=== PATIENT | female | born 1990 | race African-American/Black ===

== ENCOUNTER 2020-05-04 10:24 | Emergency (ER) | payer OTHER, SELFPAY ==
--- OUTSIDE RECORDS SUMMARY | 2020-05-04 10:26 | XMS REPORT | Continuity of Care Document ---
:1990 Author Organization [facility] t Address [address] [place] [address] Care Team Providers Name Role Phone Monica Corona Attending Clinician Problems This patient has no known problems. Allergies, Adverse Reactions, Alerts This patient has no known allergies or adverse reactions. Medications This patient has no known medications. Procedures This patient has no known procedures. Encounters Start End Encounter Admission Attending Care Care Encounter Source Date/Time Date/Time Type Type Clinicians Facility Department ID 2019-08-08 2019-08-08 Office TENNILLE Barbour [id number] 09:50:33 10:20:33 Visit Tosha Anderson [employer] [id number] [facility] [id number] MATERNAL [id number] & CHILD [address] [place] [address] Results This patient has no known results.
--- NOTE | 2020-05-04 11:47 | ER ---
Nurse's Notes [facility] Name: Manuel Holliday Age: 29 yrs Sex: Female : 1990 Arrival Date: 05/04/2020 Time: 10:28 Bed 17 Private MD: Diagnosis: Dizziness and giddiness;Abdominal tenderness;Diarrhea, unspecified Presentation: 05/04 11:00 Chief complaint: Patient states: lower abd pain and diarrhea since Thursday, denies n/v, iw denies urinary s/s, also c/o dizziness X 2 hours. Coronavirus screen: At this time, the client does not indicate any symptoms associated with coronavirus-19. Ebola Screen: Patient negative for fever greater than or equal to 101.5 degrees Fahrenheit, and additional compatible Ebola Virus Disease symptoms Patient denies exposure to infectious person. Patient denies travel to an Ebola-affected area in the 21 days before illness onset. No symptoms or risks identified at this time. Initial Sepsis Screen: Does the patient meet any 2 criteria? No. Patient's initial sepsis screen is negative. Does the patient have a suspected source of infection? No. Patient's initial sepsis screen is negative. Risk Assessment: Do you want to hurt yourself or someone else? Patient reports no desire to harm self or others. Onset of symptoms was April 01, 2020. 11:00 Method Of Arrival: Ambulatory iw 11:00 Acuity: BEN 3 iw Triage Assessment: 11:05 General: Appears in no apparent distress. comfortable, Behavior is cooperative, bp appropriate for age, anxious. Pain: Complains of pain in suprapubic area. EENT: No deficits noted. Neuro: No deficits noted. Cardiovascular: No deficits noted. Respiratory: No deficits noted. GI: Reports nausea, vomiting. : No signs and/or symptoms were reported regarding the genitourinary system. Derm: No deficits noted. Musculoskeletal: No deficits noted. Historical: - Allergies: 11:03 No Known Allergies; iw - Immunization history:: Adult Immunizations up to date. - Family history:: not pertinent. - Social history:: Smoking status: Patient denies any tobacco usage or history of. Screenin:10 Abuse screen: Denies threats or abuse. Denies injuries from another. bp 11:10 Nutritional screening: No deficits noted. Tuberculosis screening: No symptoms or risk bp factors identified. Fall Risk None identified. Assessment: 11:05 General: SEE TRIAGE NOTE. bp 11:56 Reassessment: PT D/C HOME AMBULATORY, DX WITH DIZZINESS AND NONSPECIFIC ABDOMINAL PAIN. bp Vital Signs: 11:00 BP 116 / 89; Pulse 86; Resp 16; Temp 97.9; Pulse Ox 100% on R/A; Weight 90.72 kg; Pain iw 11/08; 11:45 BP 109 / 62; Pulse 87; Resp 16; Temp 97.9; Pulse Ox 100% ; bp ED Course: 10:28 Patient arrived in ED. as 10:42 Maykel Reilly MD is Attending Physician. fazal 10:55 Francisco Wilkinson, RN is Primary Nurse. bp 11:02 Triage completed. iw 11:02 Arm band placed on. iw 11:10 Patient has correct armband on for positive identification. Bed in low position. Call bp light in reach. Side rails up X2. 11:56 No provider procedures requiring assistance completed. Patient did not have IV access bp during this emergency room visit. Administered Medications: No medications were administered Outcome: 11:46 Discharge ordered by . faazl 11:56 Discharged to home ambulatory. bp 11:56 Condition: stable 11:56 Discharge instructions given to patient, Instructed on discharge instructions, follow up and referral plans. medication usage, Demonstrated understanding of instructions, follow-up care, medications, Prescriptions given X 1. 11:58 Patient left the ED. bp Signatures: Maykel Reilly MD MD cha Martinez, Amelia as Williams, Irene, RN RN iw Francisco Wilkinson, SHANDA RN bp
--- NOTE | 2020-05-04 11:47 | EDPHYS ---
Physician Documentation [facility] Name: Manuel Holliday Age: 29 yrs Sex: Female : 1990 Arrival Date: 05/04/2020 Time: 10:28 Bed 17 Private MD: ED Physician Maykel Reilly HPI: 05/04 11:01 This 29 yrs old Black Female presents to ER via Unassigned with complaints of fazal Dizziness, Abdominal Pain. 11:01 The patient presents with dizziness, generalized weakness. Onset: The symptoms/episode fazal began/occurred 2 day(s) ago. Context: occurred at home. Modifying factors: The symptoms are alleviated by nothing. Associated signs and symptoms: The patient has no apparent associated signs or symptoms. Severity of symptoms: At their worst the symptoms were mild in the emergency department the symptoms are unchanged. Patient's baseline: Neuro: alert and fully oriented. The patient has not experienced similar symptoms in the past. Historical: - Allergies: 11:03 No Known Allergies; iw - Immunization history:: Adult Immunizations up to date. - Family history:: not pertinent. - Social history:: Smoking status: Patient denies any tobacco usage or history of. ROS: 11:01 Constitutional: Negative for fever, chills, and weight loss, Eyes: Negative for injury, fazal pain, redness, and discharge, ENT: Negative for injury, pain, and discharge, Neck: Negative for injury, pain, and swelling, Cardiovascular: Negative for chest pain, palpitations, and edema, Respiratory: Negative for shortness of breath, cough, wheezing, and pleuritic chest pain, Back: Negative for injury and pain, : Negative for injury, bleeding, discharge, and swelling, MS/Extremity: Negative for injury and deformity, Skin: Negative for injury, rash, and discoloration, Neuro: Negative for headache, weakness, numbness, tingling, and seizure, Psych: Negative for depression, anxiety, suicide ideation, homicidal ideation, and hallucinations, Allergy/Immunology: Negative for hives, rash, and allergies, Endocrine: Negative for neck swelling, polydipsia, polyuria, polyphagia, and marked weight changes, Hematologic/Lymphatic: Negative for swollen nodes, abnormal bleeding, and unusual bruising. 11:01 Abdomen/GI: Positive for abdominal pain, diarrhea, of the suprapubic area. Exam: 11:01 Constitutional: This is a well developed, well nourished patient who is awake, alert, fazal and in no acute distress. Head/Face: Normocephalic, atraumatic. Eyes: Pupils equal round and reactive to light, extra-ocular motions intact. Lids and lashes normal. Conjunctiva and sclera are non-icteric and not injected. Cornea within normal limits. Periorbital areas with no swelling, redness, or edema. ENT: Nares patent. No nasal discharge, no septal abnormalities noted. Tympanic membranes are normal and external auditory canals are clear. Oropharynx with no redness, swelling, or masses, exudates, or evidence of obstruction, uvula midline. Mucous membranes moist. Neck: Trachea midline, no thyromegaly or masses palpated, and no cervical lymphadenopathy. Supple, full range of motion without nuchal rigidity, or vertebral point tenderness. No Meningismus. Chest/axilla: Normal chest wall appearance and motion. Nontender with no deformity. No lesions are appreciated. Cardiovascular: Regular rate and rhythm with a normal S1 and S2. No gallops, murmurs, or rubs. Normal PMI, no JVD. No pulse deficits. Respiratory: Lungs have equal breath sounds bilaterally, clear to auscultation and percussion. No rales, rhonchi or wheezes noted. No increased work of breathing, no retractions or nasal flaring. Back: No spinal tenderness. No costovertebral tenderness. Full range of motion. Skin: Warm, dry with normal turgor. Normal color with no rashes, no lesions, and no evidence of cellulitis. MS/ Extremity: Pulses equal, no cyanosis. Neurovascular intact. Full, normal range of motion. Neuro: Awake and alert, GCS 15, oriented to person, place, time, and situation. Cranial nerves II-XII grossly intact. Motor strength 5/5 in all extremities. Sensory grossly intact. Cerebellar exam normal. Normal gait. Psych: Awake, alert, with orientation to person, place and time. Behavior, mood, and affect are within normal limits. 11:01 Abdomen/GI: Inspection: abdomen appears normal, Bowel sounds: normal, Palpation: abdomen is soft and non-tender, in all quadrants, Liver: no appreciated palpable abnormalities, Hernia: not appreciated. Vital Signs: 11:00 BP 116 / 89; Pulse 86; Resp 16; Temp 97.9; Pulse Ox 100% on R/A; Weight 90.72 kg; Pain iw 6/10; 11:45 BP 109 / 62; Pulse 87; Resp 16; Temp 97.9; Pulse Ox 100% ; bp MDM: 10:42 Patient medically screened. [facility] 11:05 Differential diagnosis: hypovolemia, . Data reviewed: vital signs, nurses [facility] notes, lab test result(s), urinalysis. Data interpreted: environmental monitoring specialist: rate is 86 beats/min, rhythm is regular, Pulse oximetry: on room air. Test interpretation: by ED physician or midlevel provider:. Counseling: I had a detailed discussion with the patient and/or guardian regarding: the historical points, exam findings, and any diagnostic results supporting the discharge/admit diagnosis, lab results, the need for outpatient follow up, for definitive care, a family practitioner. ED course: covid test neg 2 days ago, works in the or. 05/04 11:46 Order name: Urine Dipstick--Ancillary (enter results) 05/04 11:46 Order name: Urine --Ancillary (enter results) 05/04 11:00 Order name: Urine Dipstick-Ancillary (obtain specimen); Complete Time: 11:56 [facility] 05/04 11:00 Order name: Urine Test (obtain specimen); Complete Time: 11:56 [facility] 05/04 11:46 Order name: PO challenge; Complete Time: 11:56 [facility] Administered Medications: No medications were administered Disposition: 05/04/20 11:46 Discharged to Home. Impression: Dizziness and giddiness, Abdominal tenderness, Diarrhea, unspecified. - Condition is Stable. - Discharge Instructions: Abdominal Pain, Adult, Food Choices to Help Relieve Diarrhea, Adult, Diarrhea, Adult, Dizziness, Abdominal Pain, Adult, [id number], Diarrhea, Adult, [id number], Dizziness, [id number]. - Prescriptions for Zofran 4 mg Oral Tablet - take 1 tablet by ORAL route every 12 hours As needed; 14 tablet. - Medication Reconciliation Form, Thank You Letter, Antibiotic Education, Prescription Opioid Use, Work release form form. - Follow up: Private Physician; When: 2 - 3 days; Reason: Recheck today's complaints, Continuance of care, Re-evaluation by your physician. - Problem is new. - Symptoms have improved. Signatures: Dispatcher [employer] EDMaykel Angulo MD MD cha Williams, Irene, RN RN Francisco Rodriguez RN RN bp Corrections: (The following items were deleted from the chart) 11:58 11:46 05/04/2020 11:46 Discharged to Home. Impression: Dizziness and giddiness; bp Abdominal tenderness; Diarrhea, unspecified. Condition is Stable. Forms are Medication Reconciliation Form, Thank You Letter, Antibiotic Education, Prescription Opioid Use. Follow up: Private Physician; When: 2 - 3 days; Reason: Recheck today's complaints, Continuance of care, Re-evaluation by your physician. Problem is new. Symptoms have improved. fazal
[2020-05-04 12:21] LABS: Urine Blood 1+ (NEG); Urine Glucose NEGATIVE (NEG); Urine Protein NEGATIVE (NEG); Urine Specific Gravity 1.025 (1.005-1.030)
[2020-05-09 17:07] VITALS: BP 109/62; TEMP 97.9; O2SAT 100
== END 2020-05-04 11:58 | disposition home or self-care (01) ==
LOC: ER 10:24
DX: R10.819 Abdominal tenderness, unspecified site (principal); R19.7 Diarrhea, unspecified
CPT/HCPCS: 81003; 81025; 99282